=== PATIENT | male | born 1980 | race American Indian/Alaskan Native ===

== ENCOUNTER 2020-05-23 04:55 | Emergency (ER) | payer SELFPAY ==
[2020-05-23] MEDS ORDERED: SODIUM CHLORIDE 0.9% 1000 ML 1,000 ML IV ONE (05:38)
[2020-05-23] MEDS ORDERED: levETIRAcetam 1000 MG/NS 0.75% 1,000 MG/100 ML BAG IV ONE (05:38)
--- NOTE | 2020-05-23 05:40 | Emergency Department Report ---
Chief Complaint: Seizure Stated Complaint: SEIZURE - HPI History of Present Illness: 40-year-old -[place] male presents via EMS from home after the patient had witnessed seizure activity. The patient is currently awake and alert and says that he does have a history of seizures for which he takes Tegretol and Keppra and says that he is compliant with his medications. Currently he just says that he feels fatigued/drained. He denies any headache, fever, vision change, numbness or paresthesias. - Exam Vital Signs: Vital Signs 05/23/20 05:33 Temperature 97.8 F Pulse Rate 81 Respiratory 16 Rate Blood Pressure 115/64 [Left] O2 Sat by Pulse 96 Oximetry MSE screening note: Focused history and physical exam performed. Due to findings the following was ordered: quality assurance monitor body CBC, CMP, CK IV fluid resuscitation with a loading dose of Keppra ordered. ED Disposition for MSE Condition: Stable
[2020-05-23 06:11] LABS: Hematocrit 48.7 % (35.5-45.6); Hemoglobin 16.7 gm/dl (11.8-15.2); Mean Corpuscular HGB Conc 34 % (32-34); Mean Corpuscular Volume 95 fl (84-94); Platelet Count 193 K/mm3 (140-440); Red Blood Count 5.14 M/mm3 (3.65-5.03); Red Cell Distribution Width 13.1 % (13.2-15.2)
[2020-05-23 06:37] LABS: Alanine Aminotransferase 26 units/L (7-56); Albumin 4.4 g/dL (3.9-5); BUN/Creatinine Ratio 6; Blood Urea Nitrogen 9 mg/dL (9-20); Calcium 9.5 mg/dL (8.4-10.2); Hemolysis Index 18
--- NOTE | 2020-05-23 07:00 | Emergency Department Report ---
ED Seizure HPI - General Chief Complaint: Seizure Stated Complaint: SEIZURE Time Seen by Provider: 05/23/20 06:45 Source: patient, EMS Mode of arrival: Stretcher Limitations: Other - History of Present Illness Initial Comments: Chief complaint: Seizure HPI: This is a 40-year-old male history of seizure disorder compliant with Tegretol and Keppra who had witnessed seizure at home. Patient has been in normal state of health. He stated that his last doses of seizure medicines were yesterday morning. He denies pain and discomfort. He denies fever headache cough. MD Complaint: seizure Witnessed:: Yes Trauma: No Seizure History: known seizure disorder Place: home Possible Precipitating Event: none Associated Symptoms: denies other symptoms - Related Data Previous Rx's Medication Instructions Recorded Last Taken Type carBAMazepine [TEGretol] 100 mg PO Q12H 90 Days #180 05/23/20 Unknown Rx tab.chew levETIRAcetam [Keppra TAB] 500 mg PO BID 90 Days #180 tablet 05/23/20 Unknown Rx Allergies Allergy/AdvReac Type Severity Reaction Status Date / Time No Known Allergies Allergy Unverified 05/23/20 05:23 ED Review of Systems ROS: Stated complaint: SEIZURE Other details as noted in HPI Comment: All other systems reviewed and negative Constitutional: denies: fever, malaise Respiratory: denies: cough, shortness of breath Gastrointestinal: denies: abdominal pain, nausea, vomiting ED Past Medical Hx - Past Medical History Previous Medical History?: Yes Hx Seizures: Yes - Surgical History Past Surgical History?: Yes Hx Pacemaker: Yes - Social History Smoking Status: Never Smoker - Medications Home Medications: Home Medications Medication Instructions Recorded Confirmed Last Taken Type carBAMazepine [TEGretol] 100 mg PO Q12H 90 Days #180 05/23/20 Unknown Rx tab.chew levETIRAcetam [Keppra TAB] 500 mg PO BID 90 Days #180 tablet 05/23/20 Unknown Rx ED Physical Exam - General Limitations: No Limitations General appearance: alert, in no apparent distress - Head Head exam: Present: atraumatic, normocephalic - Eye Eye exam: Present: normal appearance - ENT ENT exam: Present: normal orophraynx, mucous membranes moist - Neck Neck exam: Present: normal inspection, full ROM - Respiratory Respiratory exam: Present: normal lung sounds bilaterally. Absent: respiratory distress, wheezes, rales, rhonchi - Cardiovascular Cardiovascular Exam: Present: regular rate, normal rhythm, normal heart sounds. Absent: systolic murmur, diastolic murmur, rubs, gallop - GI/Abdominal GI/Abdominal exam: Present: soft, normal bowel sounds. Absent: distended, tenderness, guarding, rebound - Rectal Rectal exam: Present: deferred - Extremities Exam Extremities exam: Present: normal inspection - Neurological Exam Neurological exam: Present: alert, oriented X3 - Psychiatric Psychiatric exam: Present: normal affect, normal mood - Skin Skin exam: Present: warm, dry, intact, normal color. Absent: rash ED Course Vital Signs 05/23/20 05:33 Temperature 97.8 F Pulse Rate 81 Respiratory 16 Rate Blood Pressure 115/64 [Left] O2 Sat by Pulse 96 Oximetry ED Medical Decision Making - Lab Data Result diagrams: 05/23/20 05:57 05/23/20 05:57 Laboratory Results - last 24 hr 05/23/20 05/23/20 05:57 05:57 WBC 9.2 RBC 5.14 H Hgb 16.7 H Hct 48.7 H MCV 95 H MCH 33 H MCHC 34 RDW 13.1 L Plt Count 193 Sodium 139 Potassium 4.7 Chloride 101.9 Carbon Dioxide 28 Anion Gap 14 BUN 9 Creatinine 1.4 H Estimated GFR > 60 BUN/Creatinine Ratio 6 Glucose 146 H Calcium 9.5 Total Bilirubin 0.20 AST 28 ALT 26 Alkaline Phosphatase 63 Total Creatine Kinase 350 H Total Protein 6.8 Albumin 4.4 Albumin/Globulin Ratio 1.8 - Medical Decision Making Seizure with history of seizure disorder: Patient states he has been in his norm al state of health. He is currently comfortable symptom-free. Received IV Keppra load. I have prescribed Tegretol and Keppra refills he does not normally physician.. His doses are Tegretol 100 mg twice daily, Keppra 500 mg twice daily. Patient was given referral to neurologist. CBC chemistry unremarkable elevated CK does not reflect rhabdomyolysis in this clinical setting. Critical care attestation.: If time is entered above; I have spent that time in minutes in the direct care of this critically ill patient, excluding procedure time. ED Disposition Clinical Impression: Breakthrough seizure, History of seizure disorder Disposition: - TO HOME OR SELFCARE Is pt being admited?: No Does the pt Need Aspirin: No Condition: Stable Instructions: Epilepsy, [id number] Prescriptions: levETIRAcetam [Keppra TAB] 500 mg PO BID 90 Days #180 tablet carBAMazepine [TEGretol] 100 mg PO Q12H 90 Days #180 tab.chew Referrals: PAR[facility] P[facility] MD [Referring] - 3-5 Days SAVANNA RODRIGUEZ MD [Staff Physician] - 3-5 Days
[2020-05-23 07:14] LABS: Platelet Estimate Consistent w Auto; Total Cells Counted 100
[2020-05-23 08:44] VITALS: BP 143/79
== END 2020-05-23 08:45 | disposition home or self-care (01) ==
LOC: ED 04:55
DX: G40.919 Epilepsy, unspecified, intractable, without status epilepticus (principal); Z79.899 Other long term (current) drug therapy; Z86.69 Personal history of other diseases of the nervous system and sense organs; Z95.0 Presence of cardiac pacemaker
CPT/HCPCS: 36415; 80053; 82550; 85007; 85025; 96365; 99284; J1953; J7030

== ENCOUNTER 2020-06-29 09:57 | Emergency (ER) | payer SELFPAY ==
[2020-06-29 10:39] VITALS: BP 141/82
--- NOTE | 2020-06-29 10:58 | Emergency Department Report ---
ED Recheck HPI - General Chief Complaint: Recheck/Abnormal Lab/Rx Stated Complaint: MED REFILL Time Seen by Provider: 06/29/20 10:34 Source: patient Mode of arrival: Ambulatory Limitations: No Limitations - History of Present Illness Initial Comments: This is a 40-year-old male nontoxic, well nourished in appearance, no acute signs of distress presents to the ED for medication refill. Patient has a few pills left of carbamazepine XR 100 mg twice a day. Patient otherwise denies any complaints or symptoms. Patient denies any recent seizures or activities. Patient denies any chest pain, shortness of breath, fever, chills, nausea, vomiting, headache or stiff neck. Patient denies any allergies. MD Complaint: medication refill request -: days(s) Returns Today for: request for prescription Symptoms Since Prior Visit: no new symptoms Associated Symptoms: none. denies: fever, chills, chest pain, shortness of breath, rash, malaise, nasue[place], abdominal pain - Related Data Previous Rx's Medication Instructions Recorded Last Taken Type carBAMazepine [TEGretol] 100 mg PO Q12H 90 Days #180 05/23/20 Unknown Rx tab.chew levETIRAcetam [Keppra TAB] 500 mg PO BID 90 Days #180 tablet 05/23/20 Unknown Rx carBAMazepine XR [TEGretol Xr] 100 mg PO BID #60 tablet 06/29/20 Unknown Rx Allergies Allergy/AdvReac Type Severity Reaction Status Date / Time No Known Allergies Allergy Verified 06/29/20 10:35 ED Review of Systems ROS: Stated complaint: MED REFILL Other details as noted in HPI Comment: All other systems reviewed and negative Constitutional: denies: chills, fever Eyes: denies: eye pain, eye discharge, vision change ENT: denies: ear pain, throat pain Respiratory: denies: cough, shortness of breath, wheezing Cardiovascular: denies: chest pain, palpitations Endocrine: no symptoms reported Gastrointestinal: denies: abdominal pain, nausea, diarrhea Genitourinary: denies: urgency, dysuria Musculoskeletal: denies: back pain, joint swelling, arthralgia Skin: denies: rash, lesions Neurological: denies: headache, weakness, paresthesias Psychiatric: denies: anxiety, depression Hematological/Lymphatic: denies: easy bleeding, easy bruising ED Past Medical Hx - Past Medical History Hx Seizures: Yes - Surgical History Hx Pacemaker: Yes - Social History Smoking Status: Never Smoker Substance Use Type: None - Medications Home Medications: Home Medications Medication Instructions Recorded Confirmed Last Taken Type carBAMazepine [TEGretol] 100 mg PO Q12H 90 Days #180 05/23/20 Unknown Rx tab.chew levETIRAcetam [Keppra TAB] 500 mg PO BID 90 Days #180 tablet 05/23/20 Unknown Rx carBAMazepine XR [TEGretol Xr] 100 mg PO BID #60 tablet 06/29/20 Unknown Rx ED Physical Exam - General Limitations: No Limitations General appearance: alert, in no apparent distress - Head Head exam: Present: atraumatic, normocephalic - Eye Eye exam: Present: normal appearance - Neck Neck exam: Present: normal inspection, full ROM - Respiratory Respiratory exam: Absent: respiratory distress - Cardiovascular Cardiovascular Exam: Present: regular rate - Extremities Exam Extremities exam: Present: full ROM - Back Exam Back exam: Present: normal inspection, full ROM - Neurological Exam Neurological exam: Present: alert, oriented X3, normal gait - Psychiatric Psychiatric exam: Present: normal affect, normal mood - Skin Skin exam: Present: warm, dry, intact, normal color. Absent: rash ED Course Vital Signs 06/29/20 10:38 Temperature 98.2 F Pulse Rate 67 Respiratory 20 Rate Blood Pressure 141/82 O2 Sat by Pulse 93 Oximetry - Reevaluation(s) Reevaluation #1: 06/29/20 10:57 Patient is speaking in full sentences with no signs of distress noted. ED Recheck MDM - Medical Decision Making Patient is stable and was examined by me. Vital stable. I will refill patient's medication but will also give patient per primary care doctor to follow-up with. Patient was instructed to follow-up with a primary care doctor in 3-5 days or if symptoms worsen and continue return to emergency room as soon as possible. At time of discharge, the patient does not seem toxic or ill in appearance. No acute signs of distress noted. Patient agrees to discharge treatment plan of care. No further questions noted by the patient. Critical care attestation.: If time is entered above; I have spent that time in minutes in the direct care of this critically ill patient, excluding procedure time. ED Disposition Clinical Impression: Medication refill Disposition: DC-01 TO HOME OR SELFCARE Is pt being admited?: No Does the pt Need Aspirin: No Condition: Stable Instructions: Carbamazepine tablets Additional Instructions: Follow-up with a primary care doctor in 3-5 days or if symptoms worsen and continue return to emergency room as soon as possible. Prescriptions: carBAMazepine XR [TEGretol Xr] 100 mg PO BID #60 tablet Referrals: PRIMARY CAREMD [Referring] - 3-5 Days SAVANNA RODRIGUEZ MD [Staff Physician] - 3-5 Days Time of Disposition: 10:58
== END 2020-06-29 11:09 | disposition home or self-care (01) ==
LOC: ED 09:57
DX: G40.909 Epilepsy, unspecified, not intractable, without status epilepticus (principal); Z76.0 Encounter for issue of repeat prescription; Z79.899 Other long term (current) drug therapy
CPT/HCPCS: 99281